=== PATIENT | male | born 2000 | race Caucasian/White ===

== ENCOUNTER 2025-05-11 14:41 | Emergency (ER) | payer OTHER ==
[~2025-05-11] VITALS: Ht 177.8 cm; Wt 108.5 kg
[2025-05-11] MEDS ORDERED: PRED20TA PO (16:40)
[2025-05-11 16:48] VITALS: BP 154/91; TEMP 97.6; O2SAT 97
== END 2025-05-11 16:50 | disposition home or self-care (01) ==
LOC: M ED 14:41
DX: J06.9 Acute upper respiratory infection, unspecified (principal); F17.200 Nicotine dependence, unspecified, uncomplicated; Z79.52 Long term (current) use of systemic steroids

== ENCOUNTER 2025-06-29 11:30 | Emergency (ER) | payer OTHER ==
[~2025-06-29] VITALS: Ht 177.8 cm; Wt 113.6 kg
[~2025-06-29 11:30] MED LIST: PRED20TA PO
[2025-06-29] MEDS ORDERED: BUPR150T12 (11:43)
[2025-06-29] MEDS ORDERED: TRAZ-252 (11:43)
[2025-06-29] MEDS ORDERED: CYCL-707 PO (12:54)
[2025-06-29] MEDS ORDERED: MOXI1TAB PO (12:54)
[2025-06-29] MEDS ORDERED: IBUP600T42 PO (12:54)
[2025-06-29 12:59] VITALS: BP 136/87; TEMP 97.8; O2SAT 97
== END 2025-06-29 13:02 | disposition home or self-care (01) ==
LOC: M ED 11:30
DX: J18.9 Pneumonia, unspecified organism (principal); S16.1XXA Strain of muscle, fascia and tendon at neck level, initial encounter; X50.0XXA Overexertion from strenuous movement or load, initial encounter; Z87.891 Personal history of nicotine dependence; Z79.899 Other long term (current) drug therapy; Z79.1 Long term (current) use of non-steroidal anti-inflammatories (NSAID); Y92.9 Unspecified place or not applicable; Y93.89 Activity, other specified; Y99.0 Civilian activity done for income or pay